=== PATIENT | male | born 1990 | race Caucasian/White ===

== ENCOUNTER 2020-09-22 11:00 | Emergency (ER) | payer SELFPAY ==
[~2020-09-22] VITALS: Ht 177.8 cm; Wt 98.0 kg
[2020-09-22 11:44] VITALS: BP 120/78
== END 2020-09-22 11:45 | disposition home or self-care (01) ==
LOC: ER 11:00
DX: M25.532 Pain in left wrist (principal); Z98.890 Other specified postprocedural states; Z87.828 Personal history of other (healed) physical injury and trauma; W01.0XXA Fall on same level from slipping, tripping and stumbling without subsequent striking against object, initial encounter; Y93.89 Activity, other specified; Y92.018 Other place in single-family (private) house as the place of occurrence of the external cause
CPT/HCPCS: 99281